=== PATIENT | female | born 1995 | race Caucasian/White ===

== ENCOUNTER 2016-11-11 17:16 | Emergency (ER) | payer BC, OTHER ==
--- NOTE | ~2016-11-11 | CT16 ---
[facility] A Service [facility] RADIOLOGY TEXT RESULTS PATIENT: ROMA PERRY LOCATION: SED : [birth year] UNIT #: [id number] AGE: [address]: VEDA GERARDO SEX: F ORDER DR: [id number] [place] [id number] E MR#: [id number] Acc #: [id number] NAME: ROMA PERRY. : 1995 SEX: F STUDY DATE/TIME: 11/11/2016 18:41 UNIT: SED ROOM: STUDY DESCRIPTION: CT Angio Chest for PE Attending Physician: Jarret) Veda Gerardo Ordering Physician: Jarret Gerardo Primary Care Physician: Benito Centeno Aprn MEDICAL IMAGING REPORT This report is preliminary unless electronic signature is present. EXAM CT angiogram chest with IV contrast. HISTORY Tachycardia today. Calf pain for 3 days. FINDINGS IV contrast enhanced CT angiogram of the chest was performed with 3-D reconstructions. This CT exam was performed with one or more of the following radiation dose reduction techniques: automatic exposure control, adjustment of mA and/or kV according to patient size, and iterative reconstruction. No pulmonary infiltrates or effusions. No pneumothorax or pleural effusion. No pulmonary embolus. Normal-caliber pulmonary arteries. No adenopathy. Normal caliber thoracic aorta. IMPRESSION Normal examination. No acute findings. No pulmonary embolus. Dictated by... Troy Alonso M.D. THIS IS AN ELECTRONICALLY VERIFIED REPORT Troy Alonso M.D. at 11/12/2016 5:27 PM DANIELA/tierra TD: 11/12/2016 00:03 JOB #: [id number] [facility] A Service [facility] RADIOLOGY TEXT RESULTS PATIENT: ROMA PERRY LOCATION: SED : [birth year] UNIT #: [id number] AGE: [address]: VEDA GERARDO SEX: F ORDER DR: MEDICAL IMAGING REPORT Page 1 of 1
--- NOTE | ~2016-11-11 | EKG ---
PATIENT: ROMA PERRY UNIT #: [id number] Ventricular Rate: 117 BPM Atrial Rate: 117 BPM P-R Interval: 128 ms QRS Duration: 82 ms Q-T Interval: 302 ms QTC Calculation(Bezet): 421 ms P [place]: 47 degrees Calculated R [place]: 75 degrees Calculated T [place]: -5 degrees Diagnosis Line: Sinus tachycardia Diagnosis Line: Abnormal QRS-T angle, consider primary T wave Diagnosis Line: abnormality Diagnosis Line: Abnormal ECG Diagnosis Line: When compared with ECG of 07-AUG-2014 09:46, Diagnosis Line: Vent. rate has increased BY 54 BPM Diagnosis Line: Confirmed by LEONARDO BRANNON MD ([id number]) on Diagnosis Line: 11/12/2016 10:51:38 AM INTERPRETING MD: CLOVIS GUTIERRES
[~2016-11-11 17:16] MED LIST: BACTRIM DS TABL1 TA2; CORTISPORI3.5 GM OPT OD; FLORINEF0.1 MG PO; IBUPROFEN PO; MACROBID100 MG PO; OMNICEF PO; ORTHO TRI-7 DAYSX 3 PO; SINGULAIR; SUDAFED PO; VISTARIL PO; ZITHROMAX500 MG PO; ZOFRAN ODT4 MG PO; [UNRECOGNIZED DRUG - REMARK]
[2016-11-11] MEDS ORDERED: FLORINEF0.1 MG PO (17:21)
[2016-11-11] MEDS ORDERED: DEPO-PROVER150 MG/M1 (17:22)
[2016-11-11 17:57] LABS: BASOPHIL% 0.3 % (0-2.5); EOSINOPHIL# 0.2 X10e3 (0-0.7); EOSINOPHIL% 4.1 % (0.0-7.0); HEMOGLOBIN 12.4 gm/dL (12.0-16.0); LYMPHOCYTE# 1.6 X10e3 (1.0-3.5); LYMPHOCYTE% 36.3 % (17.0-45.0); MEAN CELL VOLUME 84.3 FL (83-96); MEAN CORPUSCULAR HEMOGLOBIN 29.1 PG (28-34); MEAN CORPUSCULAR HGB CONC 34.6 g/dL (30-36); MEAN PLATELET VOLUME 8.2 FL (6.5-11.5); MONOCYTE# 0.8 X10e3 (0-1.0); MONOCYTE% 17.6 % (3.0-12.0); NEUTROPHIL# 1.8 X10e3 (1.5-7.1); NEUTROPHIL% 41.7 % (40-75); PLATELET COUNT 227 X10e3 (140-420); RED BLOOD COUNT 4.27 X10e (3.90-5.30); RED CELL DISTRIBUTION WIDTH 12.7 % (11.0-15.5); WHITE BLOOD COUNT 4.4 X10e3 (4.0-10.5)
[2016-11-11 18:02] LABS: DIFF IND NO
[2016-11-11 18:06] LABS: POC - CKMB <1.0 ng/mL (0.0-7.9); POC - TROPONIN <0.05 ng/mL (<=0.05)
[2016-11-11 18:09] LABS: INR 1.1; PROTHROMBIN TIME (PATIENT) 12.9 SECONDS (9.5-12.4)
[2016-11-11 18:15] LABS: ALBUMIN SERUM 3.8 g/dL (3.5-5.0); BILIRUBIN, DIRECT 0.1 mg/dL (0.0-0.2); BILIRUBIN,INDIRECT 0.4 mg/dL (0.0-0.9); BILIRUBIN,TOTAL 0.5 mg/dL (0.2-2.0); CALCIUM SERUM 8.9 mg/dL (8.4-10.2); CREATININE SERUM 0.5 mg/dL (0.6-1.4); GLOM FILT RATE Estimated 139.3 mL/min (>60); MAGNESIUM 1.8 mg/dL (1.6-3.0); POTASSIUM 3.5 mmol/L (3.5-5.1)
[2016-11-11 18:18] LABS: AMPHETAMINE NEG (NEG); BARBITURATES NEG (NEG); BENZODIAZEPINES NEG (NEG); COCAINE NEG (NEG); MARIJUANA NEG (NEG); OPIATES NEG (NEG); TRICYCLIC ANTIDEPRESSANTS NEG (NEG); U METHADONE NEG (NEG)
[2016-11-11 18:32] LABS: URINE SOURCE CLEAN CATCH
[2016-11-11 18:34] LABS: URINE APPEARANCE CLEAR; URINE BILIRUBIN NEG (NEG); URINE BLOOD 1+ (NEG); URINE COLOR YELLOW; URINE GLUCOSE NEG (NORM); URINE KETONE NEG (NEG); URINE LEUKOCYTE ESTERASE TRACE (NEG); URINE NITRATE NEG (NEG); URINE PROTEIN NEG (NEG); URINE SPECIFIC GRAVITY 1.015 (1.003-1.035); URINE UROBILINOGEN 0.2 MG/DL (NORM)
[2016-11-11 18:35] LABS: MICRO INDICATED? YES
[2016-11-11 18:37] LABS: CULTURE INDICATED? NO; URINE BACTERIA NEG (NEG); URINE SQUAMOUS EPITHELIAL CELL FEW /[HPF]
== END 2016-11-11 22:25 | disposition hospice, home (50) ==
LOC: SED 17:16
PROVIDERS: Physician Assistant
DX: E05.90 Thyrotoxicosis, unspecified without thyrotoxic crisis or storm (principal); R00.0 Tachycardia, unspecified; F41.9 Anxiety disorder, unspecified; Z90.89 Acquired absence of other organs; Z79.899 Other long term (current) drug therapy
CPT/HCPCS: 36415; 71275; 80048; 80076; 80307; 81003; 82553; 83735; 84100; 84439; 84443; 84480; 84484; 84703; 85025; 85610; 93005; 99285; Q9967

== ENCOUNTER 2017-01-21 19:41 | Emergency (ER) | payer BC, OTHER ==
[~2017-01-21] VITALS: Ht 165.1 cm; Wt 54.4 kg
--- NOTE | ~2017-01-21 | CR63 ---
[facility] A Service of [facility] RADIOLOGY TEXT RESULTS PATIENT: ROMA PERRY LOCATION: SED : [birth year] UNIT #: [id number] AGE: [address]: Erick Zepeda MD SEX: F ORDER DR: [id number] [address] [address] [id number] E MR#: [id number] Acc #: [id number] NAME: ROMA PERRY : 1995 SEX: F STUDY DATE/TIME: 01/21/2017 21:07 UNIT: SED ROOM: STUDY DESCRIPTION: CR Chest 2 View Attending Physician: Erick Zepeda M.D. Ordering Physician: Erick Zepeda M.D. Primary Care Physician: Benito Centeno Aprn MEDICAL IMAGING REPORT This report is preliminary unless electronic signature is present. EXAM PA and lateral chest HISTORY Chest pain for 4 days. Shortness of air. FINDINGS 2 views of the chest demonstrate the cardiac size and pulmonary vascularity are normal. Mild right thoracolumbar junction curve. No airspace infiltrates or effusions. IMPRESSION No acute findings. Dictated by... Troy Alonso M.D. THIS IS AN ELECTRONICALLY VERIFIED REPORT Troy Alonso M.D. at 01/22/2017 11:25 PM DANIELA/qiana TD: 01/22/2017 04:17 JOB #: [id number] MEDICAL IMAGING REPORT Page 1 of 1
--- NOTE | ~2017-01-21 | EKG ---
PATIENT: ROMA PERRY UNIT #: [id number] Ventricular Rate: 58 BPM Atrial Rate: 58 BPM P-R Interval: 122 ms QRS Duration: 84 ms Q-T Interval: 378 ms QTC Calculation(Bezet): 371 ms P Scalf: 33 degrees Calculated R Scalf: 71 degrees Calculated T Scalf: 28 degrees Diagnosis Line: Sinus bradycardia Diagnosis Line: Otherwise normal ECG Diagnosis Line: When compared with ECG of 11-NOV-2016 17:25, Diagnosis Line: Vent. rate has decreased BY 59 BPM Diagnosis Line: Confirmed by ARMANDO MANRIQUE MD ([id number]) on 01/23/2017 Diagnosis Line: 4:37:33 PM INTERPRETING MD: BURTON GUTIERRES
[~2017-01-21 19:41] MED LIST changes: +DEPO-PROVER150 MG/M1
[2017-01-21] MEDS ORDERED: METOPROLOL SUCC50 MG PO (19:52)
[2017-01-21] MEDS ORDERED: PROPYLTHIOURACIL1 GM PO (19:53)
[2017-01-21 20:31] LABS: BASOPHIL% 0.8 % (0-2.5); EOSINOPHIL# 0.1 X10e3 (0-0.7); EOSINOPHIL% 2.5 % (0.0-7.0); HEMATOCRIT 40.5 % (35.0-45.0); HEMOGLOBIN 13.7 gm/dL (12.0-16.0); LYMPHOCYTE% 39.8 % (17.0-45.0); MEAN CELL VOLUME 83.5 FL (83-96); MEAN CORPUSCULAR HEMOGLOBIN 28.1 PG (28-34); MEAN CORPUSCULAR HGB CONC 33.7 g/dL (30-36); MEAN PLATELET VOLUME 7.8 FL (6.5-11.5); MONOCYTE# 0.6 X10e3 (0-1.0); MONOCYTE% 11.1 % (3.0-12.0); NEUTROPHIL# 2.3 X10e3 (1.5-7.1); NEUTROPHIL% 45.8 % (40-75); PLATELET COUNT 272 X10e3 (140-420); RED BLOOD COUNT 4.85 X10e (3.90-5.30); RED CELL DISTRIBUTION WIDTH 12.9 % (11.0-15.5)
[2017-01-21 20:38] LABS: DIFF IND NO
[2017-01-21 20:45] LABS: CALCIUM SERUM 9.1 mg/dL (8.4-10.2); CREATININE SERUM 0.8 mg/dL (0.6-1.4); GLOM FILT RATE Estimated 106.2 mL/min (>60); POTASSIUM 3.9 mmol/L (3.5-5.1)
[2017-01-21 20:46] LABS: POC - CKMB <1.0 ng/mL (0.0-7.9); POC - MYOGLOBIN 21.7 ng/mL (0.0-169.0); POC - TROPONIN <0.05 ng/mL (<=0.05)
== END 2017-01-21 22:39 | disposition home or self-care (01) ==
LOC: SED 19:41
PROVIDERS: Emergency Medicine
DX: R07.9 Chest pain, unspecified (principal); F41.9 Anxiety disorder, unspecified; E03.9 Hypothyroidism, unspecified; Z79.899 Other long term (current) drug therapy
CPT/HCPCS: 36415; 71020; 80048; 82553; 83874; 84484; 84703; 85025; 85379; 93005; 99285